=== PATIENT | female | born 1995 | race Hispanic/Latino ===

== ENCOUNTER 2022-04-15 14:30 | Observation (INO) | payer MEDICAID ==
[~2022-04-15] VITALS: Ht 157.5 cm; Wt 96.2 kg
[2022-04-15 15:08] LABS: APPEARANCE,URINE Clear (CLEAR); BILIRUBIN,URINE Negative (NEGATIVE); COLOR,URINE Yellow (YELLOW); GLUCOSE, URINE (UA) Negative (NEGATIVE); KETONES,URINE 15 mg/dL (NEGATIVE); LEUKOCYTE ESTERASE ,URINE Negative (NEGATIVE); NITRATE,URINE Negative (NEGATIVE); OCCULT BLOOD,URINE Negative (NEGATIVE); PH,URINE 7.5 (5.0-8.0); PROTEIN,URINE Negative (NEGATIVE)
[2022-04-15 15:15] LABS: AMPHET/METH SCREEN,URINE NEGATIVE (NEGATIVE); BARBITURATE SCREEN, URINE NEGATIVE (NEGATIVE); BENZODIAZEPINES SCREEN,URINE NEGATIVE (NEGATIVE); CANNABINOID SCREEN,URINE NEGATIVE (NEGATIVE); COCAINE SCREEN,URINE NEGATIVE (NEGATIVE); OPIATE SCREEN,URINE NEGATIVE (NEGATIVE); PHENCYCLIDINE SCREEN,URINE NEGATIVE (NEGATIVE)
[2022-04-15] MEDS ORDERED: TERBUTALINE SULFATE VIAL 1MG/ML SQ SCH ×2 (16:00→16:45)
[2022-04-15] MEDS ORDERED: LACTATED RINGERS 1000ML IV SCH (16:50)
[2022-04-15 17:18] LABS: MEAN CORPUSCULAR HEMOGLOBIN 24.9 pg (27.0-33.0); MEAN CORPUSCULAR HGB CONC 30.7 g/dL (32.0-36.0); MEAN CORPUSCULAR VOLUME 81.3 fL (79-99); PLATELET COUNT (AUTO) 357 K/uL (130-400); RED BLOOD CELL COUNT(AUTO) 3.69 MIL/uL (4.00-5.50); RED CELL DISTRIBUTION WIDTH 14.6 % (11.0-15.5); WHITE BLOOD COUNT (AUTO) 15.2 K/uL (4.8-10.8)
[2022-04-15] MEDS ORDERED: MAGNESIUM SULFATE 40GM/1000ML 1,000 ML IV PRN (17:30)
[2022-04-15] MEDS ORDERED: MAGNESIUM 4GM PREMIX 100ML 100 ML IV SCH (17:30)
[2022-04-15] MEDS ORDERED: CALCIUM GLUC 1GM/10ML VIAL IV PRN (17:30)
[2022-04-15] MEDS: AMPICILLIN 2GM+NS 100ML IV SCH ×2 (18:08→23:28)
[2022-04-15 21:00] VITALS: BP 104/50
[2022-04-15] MEDS: ACETAMINOPHEN 500 MG TABLET PO PRN (23:28)
[2022-04-16] MEDS ORDERED: PREN1TAB80 PO (03:05)
[2022-04-16] MEDS ORDERED: CELESTONE SOLUSPAN 6 MG/ML 5ML VIAL ONE (05:04)
[2022-04-16] MEDS: ACETAMINOPHEN 500 MG TABLET PO PRN (05:11)
[2022-04-16] MEDS ORDERED: CELESTONE SOLUSPAN 6 MG/ML 5ML VIAL IM SCH (05:30)
[2022-04-16] MEDS: AMPICILLIN 2GM+NS 100ML IV SCH (06:26)
[2022-04-16] MEDS ORDERED: PHARMACY COMMUNICATION MISC SCH (06:30)
[2022-04-16 09:19] LABS: RAPID PLASMA REAGIN NONREACTIVE (NONREACTIVE)
== END 2022-04-16 08:45 | disposition home or self-care (01) ==
LOC: EDH 14:30 → LDH 14:31
PROVIDERS: ADMIT Obstetrics & Gynecology; ATTEND Obstetrics & Gynecology
DX: O62.9 Abnormality of forces of labor, unspecified (principal); O26.893 Other specified pregnancy related conditions, third trimester; R51.9 Headache, unspecified; Z3A.34 34 weeks gestation of pregnancy
CPT/HCPCS: 36415; 76805; 80305; 81003; 85027; 86592; 86701; 86850; 86900; 86901; 87340; 87390; 96361; 96365; 96366 ×2; 96368; 96372; A4314; A4510; A4600; G0378 ×18; G0379; J0290 ×3; J0702; J3105; J3475 ×2; J7120; 96360

== ENCOUNTER 2022-04-17 08:22 | Observation (INO) | payer MEDICAID ==
[~2022-04-17 08:22] MED LIST: PREN1TAB80 PO
[2022-04-17] MEDS ORDERED: CELESTONE SOLUSPAN 6 MG/ML 5ML VIAL IM SCH (09:00)
== END 2022-04-17 10:30 | disposition home or self-care (01) ==
LOC: LDH 08:22
PROVIDERS: ADMIT Obstetrics & Gynecology; ATTEND Obstetrics & Gynecology
DX: Z34.83 Encounter for supervision of other normal pregnancy, third trimester (principal); Z3A.37 37 weeks gestation of pregnancy
CPT/HCPCS: 96372; G0378 ×2; G0379; J0702